=== PATIENT | female | born 1985 | race Caucasian/White ===

== ENCOUNTER 2016-08-18 14:53 | Emergency (ER) | payer BC, SELFPAY ==
--- NOTE | 2016-08-18 16:09 | CT ---
CT HEAD WITHOUT IV CONTRAST: Date: 08-18-16 History: Dizziness, fainting. Headache and dizziness for three days. FINDINGS: There is no evidence of a hemorrhage, acute infarction, mass effect, or midline shift. Ventricular system is normal in size, shape, and position. Minimal mucosal thickening seen in a few ethmoidal a ir cells. Mastoid air cells are clear. Calvarial structures are intact without evidence of a fract ure. IMPRESSION: No acute intracranial abnormalities demonstrated. POS: [facility]
[2016-08-18] MEDS ORDERED: Meclizine HCl 25 MG TAB ONE (16:12)
[2016-08-18] MEDS ORDERED: Acetaminophen 325 MG TAB ONE (16:13)
[2016-08-18] MEDS ORDERED: Acetaminophen 325 MG Suppository ONE (16:13)
== END 2016-08-18 16:34 | disposition home or self-care (01) ==
LOC: NAV ERS 14:53
DX: J01.90 Acute sinusitis, unspecified (principal); R42 Dizziness and giddiness; F17.210 Nicotine dependence, cigarettes, uncomplicated
CPT/HCPCS: 70450

== ENCOUNTER 2016-09-10 14:55 | Emergency (ER) | payer SELFPAY ==
[2016-09-10] MEDS ORDERED: Ketorolac Tromethamine 60 MG/2 ML VIAL ONE (15:25)
== END 2016-09-10 15:28 | disposition home or self-care (01) ==
LOC: NAV ERS 14:55
DX: M54.5 Low back pain (principal); F17.210 Nicotine dependence, cigarettes, uncomplicated
CPT/HCPCS: J1885

== ENCOUNTER 2017-04-01 14:33 | Emergency (ER) | payer SELFPAY ==
[2017-04-01] MEDS ORDERED: Ketorolac Tromethamine 60 MG/2 ML VIAL ONE ×2 (15:19)
== END 2017-04-01 15:40 | disposition home or self-care (01) ==
LOC: NAV ERS 14:33
DX: S13.9XXA Sprain of joints and ligaments of unspecified parts of neck, initial encounter (principal); F32.9 Major depressive disorder, single episode, unspecified; F17.210 Nicotine dependence, cigarettes, uncomplicated; V89.2XXA Person injured in unspecified motor-vehicle accident, traffic, initial encounter
CPT/HCPCS: 96372; J1885

== ENCOUNTER 2017-04-17 09:58 | Emergency (ER) | payer SELFPAY ==
[2017-04-17] MEDS ORDERED: Sodium Chloride 0.9% 1,000 ML ONE (10:41)
[2017-04-17] MEDS ORDERED: Metoclopramide HCl 10 MG/2 ML VIAL ONE (10:53)
[2017-04-17] MEDS ORDERED: diphenhydrAMINE 50 MG/ML VIAL ONE (10:53)
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
== END 2017-04-17 11:50 | disposition home or self-care (01) ==
LOC: NAV ERS 09:58
DX: S06.0X0A Concussion without loss of consciousness, initial encounter (principal); F17.210 Nicotine dependence, cigarettes, uncomplicated; V53.6XXA Passenger in pick-up truck or van injured in collision with car, pick-up truck or van in traffic accident, initial encounter
CPT/HCPCS: 70450; 96365; 96375; J1200; J2765; J7050

== ENCOUNTER 2017-08-30 12:45 | Emergency (ER) | payer SELFPAY ==
[2017-08-30] MEDS ORDERED: Ketorolac Tromethamine 30 MG/ML VIAL ONE (13:12)
[2017-08-30 13:21] LABS: Pregnancy Test - Urine (BHCG) Negative (Negative); Pregu Control Background? CLEAR/WHITE (CLR/WHITE); Pregu Control Bar Appear? YES (CONTROL BAR); Specific Gravity 1.026 (1.002-1.036)
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
== END 2017-08-30 14:17 | disposition home or self-care (01) ==
LOC: NAV ERS 12:45
DX: S06.0X9A Concussion with loss of consciousness of unspecified duration, initial encounter (principal); S23.3XXA Sprain of ligaments of thoracic spine, initial encounter; S33.5XXA Sprain of ligaments of lumbar spine, initial encounter; S29.012A Strain of muscle and tendon of back wall of thorax, initial encounter; F32.9 Major depressive disorder, single episode, unspecified; F17.210 Nicotine dependence, cigarettes, uncomplicated; V49.40XA Driver injured in collision with unspecified motor vehicles in traffic accident, initial encounter
CPT/HCPCS: 70450; 72072; 72100; 81025; 96372; J1885

== ENCOUNTER 2017-10-29 14:05 | Emergency (ER) | payer SELFPAY ==
[2017-10-29 14:56] LABS: Bilirubin Negative (Negative); Blood, Urine Negative (Negative); Clarity Clear (Clear); Glucose, Urine (Dipstick) Negative (Negative); Leukocyte Negative (Negative); Nitrite Negative (Negative); Protein, Urine (Dipstick) Negative (Neg-Trace); Urobilinogen 0.2 mg/dL (0.2-1.0); pH, Urine 5.5 (5.0-9.0)
[2017-10-29 14:57] LABS: Pregnancy Test - Urine (BHCG) Negative (Negative); Pregu Control Background? CLEAR/WHITE (CLR/WHITE); Pregu Control Bar Appear? YES (CONTROL BAR)
[2017-11-01 19:42] LABS: Chlamydia by PCR Not Detected (NotDetected); GC by PCR Not Detected (NotDetected)
== END 2017-10-29 15:25 | disposition home or self-care (01) ==
LOC: NAV ERS 14:05
DX: R10.2 Pelvic and perineal pain (principal); E66.9 Obesity, unspecified; F32.9 Major depressive disorder, single episode, unspecified; F17.210 Nicotine dependence, cigarettes, uncomplicated
CPT/HCPCS: 81003; 81025; 87480; 87491; 87510; 87591; 87660; 99284

== ENCOUNTER 2017-12-26 18:16 | Emergency (ER) | payer SELFPAY ==
[2017-12-26] MEDS ORDERED: Acetaminophen 325 MG TAB ONE (19:05)
--- NOTE | 2017-12-26 19:14 | RAD ---
RIGHT KNEE FOUR VIEWS: 12/26/17 HISTORY: Knee pain. There is minimal arthritic changes of the knee. There is no signs of fracture, dislocation or joint e ffusion. IMPRESSION: No acute injury. POS: [facility]
--- NOTE | 2017-12-26 19:17 | RAD ---
LUMBAR SPINE SERIES THREE VIEWS: 12/26/17 HISTORY: Back pain. Vertebral bodies are normal in height. Minimal arthritic changes are seen. No compression fractures. Pedicles are intact. IMPRESSION: No acute findings. POS: [facility]
--- NOTE | 2017-12-26 19:19 | RAD ---
RIGHT HIP TWO VIEWS: 12/26/17 HISTORY: Hip pain. Joint spaces are well preserved. There are no signs of fracture or other bony findings. IMPRESSION: Negative right hip. POS: [facility]
== END 2017-12-26 19:35 | disposition home or self-care (01) ==
LOC: NAV ERS 18:16
DX: S70.01XA Contusion of right hip, initial encounter (principal); M54.5 Low back pain; M25.561 Pain in right knee; F32.9 Major depressive disorder, single episode, unspecified; F17.210 Nicotine dependence, cigarettes, uncomplicated; W11.XXXA Fall on and from ladder, initial encounter
CPT/HCPCS: 72100

== ENCOUNTER 2019-03-24 10:32 | Emergency (ER) | payer SELFPAY | END 2019-03-24 11:10 | disposition home or self-care (01) | LOC: NAV ERS 10:32 | DX: M25.562 Pain in left knee (principal); F32.9 Major depressive disorder, single episode, unspecified; F17.210 Nicotine dependence, cigarettes, uncomplicated | CPT/HCPCS: 99281 ==

== ENCOUNTER 2019-05-31 11:38 | Emergency (ER) | payer SELFPAY ==
[2019-05-31 12:55] LABS: Bilirubin Negative (Negative); Blood, Urine Negative (Negative); Clarity Slightly Cloudy (Clear); Glucose, Urine (Dipstick) Negative (Negative); Leukocyte Negative (Negative); Nitrite Negative (Negative); Protein, Urine (Dipstick) Negative (Neg-Trace); Urobilinogen 0.2 mg/dL (Less than 2)
[2019-05-31 12:57] LABS: Pregnancy Test - Urine (BHCG) Negative (Negative); Pregu Control Background? CLEAR/WHITE (CLR/WHITE); Pregu Control Bar Appear? YES (CONTROL BAR); Specific Gravity 1.025 (1.002-1.036)
== END 2019-05-31 13:20 | disposition home or self-care (01) ==
LOC: NAV ERS 11:38
DX: J11.1 Influenza due to unidentified influenza virus with other respiratory manifestations (principal); R10.30 Lower abdominal pain, unspecified; F32.9 Major depressive disorder, single episode, unspecified; F17.210 Nicotine dependence, cigarettes, uncomplicated
CPT/HCPCS: 81003; 81025; 99283

== ENCOUNTER 2020-10-20 08:32 | Emergency (ER) | payer SELFPAY ==
[2020-10-20 09:52] LABS: Bilirubin Negative (Negative); Blood, Urine Large (Negative); Glucose, Urine (Dipstick) Negative (Negative); Ketone, Urine Negative (Negative); Leukocyte Small (Negative); Nitrite Negative (Negative); Protein, Urine (Dipstick) Negative (Neg-Trace); Urobilinogen 0.2 mg/dL (Less than 2); pH, Urine 8.5 (5.0-9.0)
[2020-10-20 09:55] LABS: Clarity SL HAZY (Clear)
[2020-10-20 09:56] LABS: Pregnancy Test - Urine (BHCG) Negative (Negative); Pregu Control Background? CLEAR/WHITE (CLR/WHITE); Pregu Control Bar Appear? YES (CONTROL BAR)
[2020-10-20 10:00] LABS: RBC/HPF 0-3 HPF (0-3); Squamous Epithelial 0-3 HPF (0-3)
[2020-10-20] MEDS ORDERED: Ondansetron PF 4 MG/2 ML Vial ONE (10:25)
[2020-10-20 10:31] LABS: #Basophils 0.1 thou/uL (0.0-0.2); #Eosinphils 0.3 thou/uL (0.0-0.7); #Lymphocytes 2.4 thou/uL (1.20-3.40); #Monocytes 0.7 thou/uL (0.11-0.59); #Neutrophils 5.1 thou/uL (1.40-6.50); %Basophils 0.8 % (0.0-1.0); %Eosinophils 3.7 % (0.0-10.0); %Lymphocytes 27.6 % (21.0-51.0); %Monocytes 7.9 % (0.0-10.0); %Neutrophils 60.1 % (42.0-75.0); Hemoglobin 13.4 g/dL (12.0-16.0); Mean Corpuscular Hemoglobin 28.3 pg (27.0-31.0); Mean Corpuscular Volume 94.4 fL (78.0-98.0); Mean Platelet Volume 10.6 fL (7.4-10.4); Platelet Count 186 thou/uL (130-400); RBC Distribution Width 12.3 % (11.5-14.5); Red Blood Cell (RBC) Count 4.73 mill/uL (4.20-5.40); White Blood Cell (WBC) Count 8.5 thou/uL (4.8-10.8)
[2020-10-20] MEDS ORDERED: Ketorolac Tromethamine 30 MG/ML VIAL ONE (10:40)
[2020-10-20 10:45] LABS: ALT (SGPT) 23 U/L (8-55); AST (SGOT) 18 U/L (5-34); Albumin 3.9 g/dL (3.5-5.0); Alkaline Phosphatase 56 U/L (40-110); Anion Gap 13 mmol/L (10-20); BUN (Urea Nitrogen) 17 mg/dL (7.0-18.7); Bilirubin, Total 0.3 mg/dL (0.2-1.2); Calc. Creatinine Clearance 0 mL/min (70-130); Calcium 8.8 mg/dL (7.8-10.44); Carbon Dioxide 24 mmol/L (22-29); Chloride 108 mmol/L (98-107); Globulin 2.9 g/dL (2.4-3.5); Glucose 95 mg/dL (70-105); Lipase 24 U/L (8-78); Potassium 4.2 mmol/L (3.5-5.1); Protein, Total 6.8 g/dL (6.0-8.3); Sodium 141 mmol/L (136-145)
== END 2020-10-20 11:48 | disposition home or self-care (01) ==
LOC: NAV ERS 08:32
DX: N39.0 Urinary tract infection, site not specified (principal); N93.8 Other specified abnormal uterine and vaginal bleeding; F17.210 Nicotine dependence, cigarettes, uncomplicated
CPT/HCPCS: 80053; 81003; 81015; 81025; 83690; 85025; 87077; 87086; 96374; 96375; J1885; J2405

== ENCOUNTER 2020-12-24 10:13 | Emergency (ER) | payer SELFPAY ==
[2020-12-24] MEDS ORDERED: Ibuprofen 800 MG TAB ONE (11:08)
[2020-12-24 20:55] LABS: SARS-CoV-2 PCR by NAA DETECTED (NotDetected)
== END 2020-12-24 11:15 | disposition home or self-care (01) ==
LOC: NAV ERS 10:13
DX: U07.1 COVID-19 (principal); Z71.6 Tobacco abuse counseling; F17.210 Nicotine dependence, cigarettes, uncomplicated
CPT/HCPCS: 99406; U0003; U0005

== ENCOUNTER 2022-09-04 09:21 | Emergency (ER) | payer OTHER, SELFPAY ==
[2022-09-04 09:53] LABS: #Basophils 0.1 thou/uL (0.0-0.2); #Eosinphils 0.3 thou/uL (0.0-0.7); #Lymphocytes 2.2 thou/uL (1.20-3.40); #Monocytes 0.5 thou/uL (0.11-0.59); #Neutrophils 4.6 thou/uL (1.40-6.50); %Basophils 0.7 % (0.0-1.0); %Eosinophils 3.7 % (0.0-10.0); %Lymphocytes 28.4 % (21.0-51.0); %Monocytes 6.3 % (0.0-10.0); Hemoglobin 13.1 g/dL (12.0-16.0); Mean Corpuscular HGB CONC 31.8 g/dL (32.0-36.0); Mean Corpuscular Hemoglobin 28.3 pg (27.0-31.0); Mean Corpuscular Volume 88.9 fl (78.0-98.0); Mean Platelet Volume 9.1 fL (7.4-10.4); Platelet Count 205 10x3/uL (130-400); RBC Distribution Width 12.8 % (11.5-14.5); Red Blood Cell (RBC) Count 4.65 mill/uL (4.20-5.40); White Blood Cell (WBC) Count 7.6 10x3/uL (4.8-10.8)
[2022-09-04] MEDS ORDERED: Ketorolac Tromethamine 30 MG/ML VIAL ONE (10:02)
[2022-09-04] MEDS ORDERED: traMADol HCl 50 MG TAB ONE (10:02)
[2022-09-04 10:03] LABS: AST (SGOT) 11 U/L (5-34); Anion Gap 13 mmol/L (10-20); Bilirubin, Total 0.2 mg/dL (0.2-1.2); Calc. Creatinine Clearance 0 mL/min (70-130); Calcium 8.9 mg/dL (7.8-10.44); Carbon Dioxide 23 mmol/L (22-29); Chloride 108 mmol/L (98-107); Estimated GFR 70; Glucose 95 mg/dL (70-105); Potassium 3.9 mmol/L (3.5-5.1); Sodium 140 mmol/L (136-145)
[2022-09-04 10:22] LABS: ALT (SGPT) 11 U/L (8-55); Alkaline Phosphatase 56 U/L (40-110); BUN (Urea Nitrogen) 13 mg/dL (7.0-18.7); Magnesium 1.8 mg/dL (1.6-2.6)
== END 2022-09-04 10:40 | disposition home or self-care (01) ==
LOC: NAV ERS 09:21
DX: M94.0 Chondrocostal junction syndrome [Tietze] (principal); F17.210 Nicotine dependence, cigarettes, uncomplicated
CPT/HCPCS: 71045; 80053; 83735; 83880; 84443; 84484; 85025; 85379; 93005; 96374; J1885

== ENCOUNTER 2022-12-24 11:32 | Emergency (ER) | payer SELFPAY ==
[2022-12-24] MEDS ORDERED: Ketorolac Tromethamine 30 MG/ML VIAL ONE (12:34)
[2022-12-24 12:38] LABS: Bilirubin Negative (Negative); Blood, Urine Negative (Negative); Clarity Clear (Clear); Glucose, Urine (Dipstick) Negative (Negative); Ketone, Urine Negative (Negative); Leukocyte Negative (Negative); Nitrite Negative (Negative); Protein, Urine (Dipstick) Negative (Neg-Trace); Urobilinogen 0.2 mg/dL (Less than 2)
[2022-12-24] MEDS ORDERED: Ondansetron PF 4 MG/2 ML Vial ONE (12:40)
[2022-12-24 12:46] LABS: Pregnancy Test - Urine (BHCG) Negative (Negative); Pregu Control Background? CLEAR/WHITE (CLR/WHITE); Pregu Control Bar Appear? YES (CONTROL BAR)
[2022-12-24 12:57] LABS: Bacteria/HPF Rare-Few HPF (None Seen); CAUTI Indications for Culture < 2yrs of age; RBC/HPF None Seen HPF (0-3); Urine Culture Reflex Yes Yes; WBC/HPF None Seen HPF (0-3)
[2022-12-24 13:02] LABS: #Basophils 0.1 thou/uL (0.0-0.2); #Eosinphils 0.2 thou/uL (0.0-0.7); #Lymphocytes 2.5 thou/uL (1.20-3.40); #Monocytes 0.6 thou/uL (0.11-0.59); #Neutrophils 6.2 thou/uL (1.40-6.50); %Basophils 0.6 % (0.0-1.0); %Eosinophils 2.5 % (0.0-10.0); %Monocytes 6.6 % (0.0-10.0); %Neutrophils 64.3 % (42.0-75.0); Mean Corpuscular HGB CONC 31.8 g/dL (32.0-36.0); Mean Corpuscular Hemoglobin 27.4 pg (27.0-31.0); Mean Corpuscular Volume 86.1 fl (78.0-98.0); Mean Platelet Volume 10.6 fL (7.4-10.4); Platelet Count 192 10x3/uL (130-400); RBC Distribution Width 12.6 % (11.5-14.5); Red Blood Cell (RBC) Count 4.76 mill/uL (4.20-5.40); White Blood Cell (WBC) Count 9.7 10x3/uL (4.8-10.8)
[2022-12-24 13:21] LABS: ALT (SGPT) 13 U/L (8-55); AST (SGOT) 11 U/L (5-34); Albumin 4.1 g/dL (3.5-5.0); Alkaline Phosphatase 60 U/L (40-110); Anion Gap 12 mmol/L (10-20); BUN (Urea Nitrogen) 21 mg/dL (7.0-18.7); Bilirubin, Total 0.4 mg/dL (0.2-1.2); Calc. Creatinine Clearance 0 mL/min (70-130); Calcium 9.1 mg/dL (7.8-10.44); Carbon Dioxide 25 mmol/L (22-29); Chloride 107 mmol/L (98-107); Estimated GFR 67; Globulin 3.3 g/dL (2.4-3.5); Glucose 88 mg/dL (70-105); Potassium 3.9 mmol/L (3.5-5.1); Protein, Total 7.4 g/dL (6.0-8.3); Sodium 140 mmol/L (136-145)
== END 2022-12-24 14:17 | disposition home or self-care (01) ==
LOC: NAV ERS 11:32
DX: N83.201 Unspecified ovarian cyst, right side (principal); F17.290 Nicotine dependence, other tobacco product, uncomplicated
CPT/HCPCS: 36415; 74177; 80053; 81001; 81025; 85025; 87086; 96374; 96375; J1885; J2405